=== PATIENT | female | born 1990 | race American Indian/Alaskan Native ===

== ENCOUNTER 2019-08-30 19:00 | Emergency (ER) | payer SELFPAY ==
[2019-08-30 21:08] LABS: Basophils % (Auto) 0.3 % (0.0-1.8); Eosinophils % (Auto) 0.4 % (0.0-4.3); Hemoglobin 14.9 gm/dl (10.1-14.3); Lymphocytes # (Auto) 2.3 K/mm3 (1.2-5.4); Lymphocytes % (Auto) 26.7 % (13.4-35.0); Mean Corpuscular HGB Conc 33 % (30-34); Mean Corpuscular Volume 96 fl (79-97); Monocytes # (Auto) 0.6 K/mm3 (0.0-0.8); Monocytes % (Auto) 6.5 % (0.0-7.3); Platelet Count 270 K/mm3 (140-440); Red Blood Count 4.71 M/mm3 (3.65-5.03); Red Cell Distribution Width 12.3 % (13.2-15.2)
[2019-08-30 21:19] LABS: BUN/Creatinine Ratio 17; Blood Urea Nitrogen 12 mg/dL (7-17); Calcium 10.2 mg/dL (8.4-10.2); Hemolysis Index 30
--- NOTE | 2019-08-30 21:56 | XRay Report ---
CHEST 2 VIEWS INDICATION / CLINICAL INFORMATION: Chest Pain. COMPARISON: None available. FINDINGS: SUPPORT DEVICES: None. HEART / MEDIASTINUM: No significant abnormality. LUNGS / PLEURA: No significant pulmonary or pleural abnormality. No pneumothorax. ADDITIONAL FINDINGS: No significant additional findings. IMPRESSION: 1. No acute findings. Signer Name: Edvin Fernández MD Signed: 08/30/2019 9:51 PM Workstation Name: [id number]
--- NOTE | 2019-08-30 22:50 | Emergency Department Report ---
ED Chest Pain HPI - General Chief Complaint: Chest Pain Stated Complaint: CHEST PAIN Time Seen by Provider: 08/30/19 22:20 Source: patient, EMS Mode of arrival: Ambulatory Limitations: No Limitations - History of Present Illness Initial Comments: 29-year-old -[place] female presents to the emergency department with complaint of some midsternal right-sided chest pain that has been going on since earlier today. She says that she has been having a dry cough and the chest pain mostly occurs when the patient is coughing. It also worsens when she presses on the chest and with certain movements. The patient has a history of CHF and says that she just recently restarted her digoxin. The symptoms started shortly after taking her dose of digoxin this evening. She does not have any shortness of breath now but says that she will have some intermittently. She denies any fever, back pain, lower extremity swelling, nausea, vomiting or diaphoresis. Patient follows up with [facility] cardiology. She does not have a primary care physician. Denies any smoking or illicit drug use. She also has a past medical history of a childhood or congenital heart defect, however the patient cannot remember what that defect was. - Related Data Allergies Allergy/AdvReac Type Severity Reaction Status Date / Time Penicillins Allergy Unknown Verified 08/30/19 19:12 tomato Allergy Unknown Verified 08/30/19 19:12 Heart Score - HEART Score History: Slightly suspicious EKG: Normal Age: < 45 Risk factors: No known risk factors Troponin: < normal limit HEART Score: 0 - Critical Actions Critical Actions: 0-3 pts:0.9-1.7%risk of adverse cardiac event.Candidate for discharge ED Review of Systems ROS: Stated complaint: CHEST PAIN Other details as noted in HPI Comment: All other systems reviewed and negative Constitutional: denies: chills, fever Eyes: denies: eye pain, vision change ENT: denies: ear pain, throat pain Respiratory: cough. denies: wheezing Cardiovascular: chest pain. denies: palpitations Gastrointestinal: denies: abdominal pain, vomiting Genitourinary: denies: dysuria, discharge Musculoskeletal: denies: back pain, arthralgia Skin: denies: rash, lesions Neurological: denies: headache, weakness ED Past Medical Hx - Past Medical History Previous Medical History?: Yes Hx Congestive Heart Failure: Yes Additional medical history: Congenital Heart Defect - Surgical History Past Surgical History?: Yes Additional Surgical History: Heart Surgery - Social History Smoking Status: Never Smoker Substance Use Type: None ED Physical Exam - General Limitations: No Limitations - Other Other exam information: GENERAL: The patient is well-developed well-nourished. HEENT: Normocephalic. Atraumatic. Patient has moist mucous membranes. EYES: Extraocular motions are intact. NECK: Supple. Trachea is midline CHEST/LUNGS: Clear to auscultation. There is no respiratory distress noted. Chest pain is reproducible to palpation of the chest wall. No crepitus or deformity. HEART/CARDIOVASCULAR: Regular. There is no tachycardia. ABDOMEN: Abdomen is soft, nontender. Patient has normal bowel sounds. There is no abdominal distention. SKIN: Skin is warm and dry. NEURO: The patient is awake, alert, and oriented. The patient is cooperative. The patient has no focal neurologic deficits. Normal speech. MUSCULOSKELETAL: There is no tenderness or deformity. There is no evidence of acute injury. ED Course Vital Signs 08/30/19 08/30/19 08/30/19 19:18 22:53 23:01 Temperature 98.5 F Pulse Rate 115 H 92 H 73 Respiratory 18 20 13 Rate Blood Pressure 98/76 136/76 O2 Sat by Pulse 99 100 Oximetry GAVIN score - Gavin Score Age > 65: (0) No Aspirin use within the Past 7 Days: (0) No 3 or more CAD Risk Factors: (0) No 2 or more Angina events in past 24 hrs: (1) Yes (If pain is considered angina, but more likely to be costochondritis) Known CAD with more than 50% Stenosis: (0) No Elevated Cardiac Markers: (0) No ST Deviation Greater than 0.5mm: (0) No GAVIN Score: 1 ED Medical Decision Making - Lab Data Result diagrams: 08/30/19 20:17 08/30/19 20:17 - EKG Data -: EKG Interpreted by Me EKG shows normal: sinus rhythm, axis, intervals, QRS complexes, ST-T waves Rate: normal - EKG Data When compared to previous EKG there are: previous EKG unavailable Interpretation: normal EKG - Radiology Data Radiology results: image reviewed interpreted by me: Chest x-ray does not show any pneumonia, pneumothorax, focal consolidation, pleural effusions, or any other acute process. - Medical Decision Making This patient presents to the emergency department with a complaint of some intermittent chest pain and intermittent shortness of breath. EKG does not show any signs of ST elevation TX, ischemia or dysrhythmia. Chest x-ray does not show any pneumonia, pleural effusions or any other acute process. Heart and lung sounds are normal auscultation. Chest pain is reproducible to palpation of the chest wall without any crepitus or deformity. The patient has a heart score of 0. The GAVIN score is also most likely 0 as her pain is not consistent with angina and is more consistent with reproducible chest wall pain. Vital signs stable throughout her ED course. Patient is low on the well's score criteria and does not have any risk factors for thromboembolic disease. She has good follow-up with cardiology. She appears safe for discharge home at this time. She has been instructed to return to the emergency department with any return of her chest pain, worsening of her symptoms, or with any acute distress. She understands and agrees to the plan. All questions have been answered. - Differential Diagnosis costochondritis, muscle spasm, TX, dysrhythmia Critical Care Time: No Critical care attestation.: If time is entered above; I have spent that time in minutes in the direct care of this critically ill patient, excluding procedure time. ED Disposition Clinical Impression: Atypical chest pain Disposition: DC-01 TO HOME OR SELFCARE Is pt being admited?: No Condition: Stable Instructions: Chest Pain (ED), Costochondritis (ED) Additional Instructions: Please follow-up with your registered public health nurse in the next few days. I am giving her some referrals for local primary care physicians in clinics. Return to the emergency Department with any worsening of your symptoms or any acute distress. Referrals: ONIEL MERCADO MD [Staff Physician] - 3-5 Days MEHDI FOFANA MD [Staff Physician] - 3-5 Days MARILEE BOBO MD [Staff Physician] - 3-5 Days Time of Disposition: 22:49
[2019-08-30 23:09] VITALS: BP 136/76
== END 2019-08-30 23:28 | disposition home or self-care (01) ==
LOC: ED 19:00
DX: R07.89 Other chest pain (principal); I50.9 Heart failure, unspecified; Z98.890 Other specified postprocedural states; Z88.0 Allergy status to penicillin; Z91.018 Allergy to other foods
CPT/HCPCS: 36415; 71046; 80048; 84484; 84703; 85025; 93005; 93010